=== PATIENT | female | born 1995 | race African-American/Black ===

== ENCOUNTER 2018-11-23 12:05 | Emergency (ER) | payer SELFPAY ==
[~2018-11-23] VITALS: Ht 175.3 cm; Wt 56.7 kg
[2018-11-23] MEDS ORDERED: PROMETHAZINE HC25 M1 PO (16:41)
[2018-11-23] MEDS ORDERED: CIPRO500 MG PO (16:41)
[2018-11-23] MEDS ORDERED: K-TAB ER20 MEQ PO (16:41)
== END 2018-11-23 17:10 | disposition home or self-care (01) ==
LOC: ED 12:05
DX: N39.0 Urinary tract infection, site not specified (principal); E86.0 Dehydration; R11.2 Nausea with vomiting, unspecified
CPT/HCPCS: 80053; 81001; 83690; 84703; 85025; 96361; 96365; 96375; 96376; 99284-25; J0696; J1200; J2405; J2550; J2765; J7030